=== PATIENT | male | born 1975 | race Caucasian/White ===

== ENCOUNTER 2019-09-09 19:06 | Emergency (ER) | payer MEDICAID, OTHER ==
[~2019-09-09] VITALS: Ht 182.9 cm; Wt 81.6 kg
[2019-09-09 19:55] LABS: Basophils # (auto) 0 10 ^3/uL (0-0.2); Basophils % (auto) 0.3 % (0.0-2.0); Eosinophils # (auto) 0 10 ^3/uL (0-0.8); Eosinophils % (auto) 0.2 % (0.0-7.0); Hematocrit 46.5 % (41.0-53.0); Lymphocytes # (auto) 0.8 10 ^3/uL (0.4-5.4); Mean Corpuscular Hemoglobin 30.7 pg (28.0-32.0); Mean Corpuscular Hgb Conc. 34.4 g/dL (32.0-36.0); Mean Corpuscular Volume 89.1 fL (80.0-100.0); Monocytes # (auto) 0.7 10 ^3/uL (0-1.3); Monocytes % (auto) 8.9 % (0.0-12.0); Neutrophils # (auto) 6.4 10 ^3/uL (1.6-8.6); Neutrophils % (auto) 80.6 % (37.0-80.0); Nucleated Red Blood Cells % 0.2 %; Platelet Count (auto) 231 10^3/uL (140-450); Red Blood Cells 5.22 10^6/uL (4.5-5.90); Red Cell Distribution Width 13.8 % (11.8-14.3); White Blood Cell 7.9 10^3/uL (4.4-10.8)
[2019-09-09 20:10] LABS: INR 1.07 (0.9-1.15); Partial Thromboplastin Time 27.1 sec (23.64-32.05)
[2019-09-09 20:16] LABS: BUN/Creatinine Ratio 13.4; Calcium 9.4 mg/dL (8.5-10.1); Potassium 3.4 mmol/L (3.5-5.1)
[2019-09-09 20:19] LABS: Bilirubin, Total 0.5 mg/dL (0.2-1.0)
[2019-09-09 21:00] VITALS: BP 113/81
[2019-09-09 22:07] LABS: Urine Bacteria NONE SEEN /hpf (None Seen); Urine Blood Negative /uL (Negative); Urine Specific Gravity 1.012 (1.001-1.035); Urine WBC <1 /hpf (0 - 3)
== END 2019-09-09 22:16 | disposition left against medical advice (07) ==
LOC: EDBD 19:06 → ER 19:06
DX: D49.6 Neoplasm of unspecified behavior of brain (principal); R41.82 Altered mental status, unspecified
CPT/HCPCS: 36415; 70450; 71045; 80053; 81001; 85025; 85379; 85610; 85730